=== PATIENT | female | born 1995 | race Caucasian/White ===

== ENCOUNTER 2025-10-02 21:18 | Emergency (ER) | payer BC, SELFPAY ==
[2025-10-02 21:19] VITALS: BMI 28.1
[2025-10-02 21:33] VITALS: BP 130/88; PULSE 76; RESP 16; TEMP 37; O2SAT 97
--- NOTE | 2025-10-02 21:43 | PD.EDURI ---
Upper Respiratory Inf. RME/HPI General Chief Complaint: Flu Like Symptoms Stated Complaint: COUGH Time Seen by Provider: 10/02/25 21:36 Arrival date/time: 10/02/25 21:18 30F with no significant PMH presents to ED needing work note for the past few days due to cough. Patient states cough is improving and she's ready to go back to work tomorrow. Limitations: no limitations Related Data Allergies Allergy/AdvReac Type Severity Reaction Status Date / Time No Known Allergies Allergy Verified 10/02/25 21:24 Review of Systems Review of Systems Systems Reviewed: All systems reviewed, normal except as documented Respiratory Respiratory: Reports as per HPI and Reports cough Past Medical History Social History SMOKING STATUS: Current every day smoker ED Exam General Limitations: Present no limitations General appearance: Present alert and in no apparent distress Head Head exam: Present atraumatic Neck Neck exam: Present normal inspection, full ROM and trachea midline Chest Chest inspection: Present normal inspection and symmetric chest wall rise Respiratory Respiratory exam: Present normal lung sounds bilaterally Neurological Exam Neurological exam: Present alert and oriented X3 Psychiatric Psychiatric exam: Present normal affect and normal mood Skin Skin exam: Present warm, dry, intact and normal color Course Quality Measures none Vital Signs Vital signs: Vital Signs Temperature 98.6 F 10/02/25 21:33 Pulse Rate 76 10/02/25 21:33 Respiratory Rate 16 10/02/25 21:33 Blood Pressure 130/88 H 10/02/25 21:33 Pulse Oximetry (%) 97 10/02/25 21:33 Oxygen Delivery Method Room Air 10/02/25 21:33 O2 at 97% on RA and WNLs Upper Respiratory Infection MDM Narrative MDM Narrative:: 30F with no significant PMH presents to ED needing work note for the past few days due to cough. Patient states cough is improving and she's ready to go back to work tomorrow. Physical exam reveals clear lungs and normal WOB. Patient is afebrile, calm, and alert. Work note given. Patient data External records reviewed:: None Clinical information provided by:: patient Social determinants that could affect healthcare access:: none Patient has the following chronic illnesses:: none How is presenting disease/condition affected by chronic disease/condition?: no chronic disease Evaluation data The following diagnostics were reviewed and interpreted by me:: other (specify) (none) Lab and/or radiology exams considered but not ordered:: not ordered Interpretation Summary: n/a Medications / Prescriptions Medications or Prescriptions considered but not ordered:: not ordered Medication administrations:: n/a Consultations Consultation(s) initiated? (list below): No Diagnosis Upper Respiratory Differential Diagnosis: upper respiratory infection, croup, otitis media, sinusitis, viral infection, bronchitis, influenza and pharyngitis Most likely diagnosis given after review of the tests above:: URI Admission Indicated Admission indicated?: not indicated Admission Request Was there a request for admission?: No Disposition Plan Disposition Plan: Discharge Discharge Attestation Discharge Attestation: The patient and all family members were given an opportunity to ask questions and understood the discharge instructions. Discharge instructions specifically effects, indications for sooner follow up or return to the emergency department, and the expected course of current diagnosis. Patient condition: Stable Discharge Plan Plan Patient Disposition: HOME (Self Care) Discharge Disposition comment: Stable Problem List Clinical Impression: Upper respiratory infection Patient/Caregiver Discharge Instructions Education Materials: ED URI, Viral, No Abx (Adult) Additional Instructions: Please follow-up with PCP within 24-48 hours and return immediately if symptoms worsen. Ibuprofen/Tylenol can be used simultaneously for greater fever/pain control. Benadryl is good for cough, congestion, and sleep. Keep hydrated. Advance diet as tolerated. Print Language: Arabic Stand Alone Forms: Work/School Release, Patient Portal Info Letter PA/[employer] Supervising Physician JAYDEN/[employer] Supervising Physician: Dr. White
== END 2025-10-02 21:40 | disposition home or self-care (01) ==
PROVIDERS: Emergency Provider Emergency Medicine; PCP Family Medicine
DX: J06.9 Acute upper respiratory infection, unspecified (principal); F17.200 Nicotine dependence, unspecified, uncomplicated
CPT/HCPCS: 99281